=== PATIENT | male | born 1975 | race Caucasian/White ===

== ENCOUNTER 2020-04-07 09:55 | Emergency (ER) | payer OTHER ==
[~2020-04-07] VITALS: Ht 170.2 cm; Wt 76.0 kg
[2020-04-07] MEDS ORDERED: BACITRACIN ZINC OINT UDPKT TOP ONE (10:15)
[2020-04-07] MEDS ORDERED: IBUPROFEN 800MG TABLET PO ONE (10:15)
[2020-04-07] MEDS ORDERED: TETANUS, DIPHTHERIA, PERTUSSIS VAC/PF 0.5ML (>7YR OLD) IM ONE (10:15)
[2020-04-07] MEDS ORDERED: AMOXICILLIN/POTASSIUM CLAVULANATE 875/125MG TAB PO ONE (10:15)
[2020-04-07 10:52] VITALS: BP 131/76
== END 2020-04-07 10:53 | disposition home or self-care (01) ==
LOC: ER 09:55
DX: S61.252A Open bite of right middle finger without damage to nail, initial encounter (principal); W50.3XXA Accidental bite by another person, initial encounter; Y93.89 Activity, other specified; Y92.89 Other specified places as the place of occurrence of the external cause; Y99.8 Other external cause status; E11.9 Type 2 diabetes mellitus without complications; I10 Essential (primary) hypertension; E03.9 Hypothyroidism, unspecified
CPT/HCPCS: 73140; 90471; 90715; 99284

== ENCOUNTER 2020-04-26 15:52 | Emergency (ER) | payer OTHER ==
[~2020-04-26] VITALS: Ht 172.7 cm; Wt 96.0 kg
[2020-04-26 22:04] LABS: BASOPHILS % 0.8 % (0.0-2.0); CHLORIDE 102 mEq/L (98-107); HEMATOCRIT. 48.5 % (42.0-52.0); HEMOGLOBIN. 16.1 g/dL (14.0-18.0); LYMPHOCYTES % 32.4 % (20.0-50.0); MEAN CORPUSCULAR HEMOGLOBIN 27.7 pg (28.0-32.0); MEAN CORPUSCULAR VOLUME 83.5 fL (80.0-94.0); MONOCYTES % 6.8 % (2.0-8.0); RED CELL DISTRIBUTION WIDTH 14.9 % (11.6-14.6)
[2020-04-26 22:29] LABS: MEAN PLATELET VOLUME 9.3 fl (7.4-10.4); PLATELET 76 x1000/uL (130-400)
[2020-04-27] MEDS ORDERED: ACETAMINOPHEN 325MG TABLET PO STA (00:36)
[2020-04-27] MEDS ORDERED: SODIUM CHLORIDE 0.9% 1,000 ML IV ONE (00:45)
[2020-04-27] MEDS ORDERED: MORPHINE SULFATE 4 MG/ML CPJ (NOT FOR IM USE) IV ONE (00:45)
[2020-04-27] MEDS ORDERED: ONDANSETRON HCL 4MG/2ML INJ IV ONE (00:45)
[2020-04-27] MEDS ORDERED: IOHEXOL-300 100 ML BOTTLE ONE (01:49)
[2020-04-27 02:26] LABS: CLARITY URINE CLEAR (CLEAR); COLOR URINE YELLOW (YELLOW); KETONES URINE 1+ (NEGATIVE); LEUKOCYTE ESTERASE URINE NEGATIVE (NEGATIVE); NITRITE URINE NEGATIVE (NEGATIVE); OCCULT BLOOD URINE NEGATIVE (NEGATIVE); PROTEIN URINE NEGATIVE (NEGATIVE)
[2020-04-27] MEDS ORDERED: ASPIRIN 325MG EC TABLET PO ONE (04:45)
[2020-04-27 05:10] VITALS: BP 132/79
[2020-04-27] MEDS ORDERED: ATORVASTATIN CALCIUM 40MG TABLET PO SCH (21:00)
== END 2020-04-27 05:42 | disposition left against medical advice (07) ==
LOC: ER 15:52
DX: R07.89 Other chest pain (principal); R10.13 Epigastric pain; I10 Essential (primary) hypertension; E11.9 Type 2 diabetes mellitus without complications; E03.9 Hypothyroidism, unspecified
CPT/HCPCS: 36415; 74177; 80053; 81003; 83605; 83690; 85025; 85610; 96361; 96374; 99285; J2405; J7030; Q9967; J2270

== ENCOUNTER 2020-05-18 01:25 | Inpatient (IN) | payer OTHER ==
[~2020-05-18] VITALS: Ht 170.2 cm; Wt 91.3 kg
[2020-05-18] MEDS ORDERED: AZITHROMYCIN 500 MG in DEXT 5% WATER 250 ML IV ONE (03:30)
[2020-05-18] MEDS ORDERED: CEFTRIAXONE 1 G PREMIX 50 ML IV ONE (03:30)
[2020-05-18 04:04] LABS: CHLORIDE 99 mEq/L (98-107)
[2020-05-18 04:05] LABS: BASOPHILS % 0.3 % (0.0-2.0); EOSINOPHILS % 0.2 % (0.0-5.0); HEMATOCRIT. 51.3 % (42.0-52.0); HEMOGLOBIN. 16.9 g/dL (14.0-18.0); LYMPHOCYTES % 8.1 % (20.0-50.0); MEAN CORPUSCULAR HEMOGLOBIN 27.1 pg (28.0-32.0); MEAN CORPUSCULAR VOLUME 82.2 fL (80.0-94.0); MEAN PLATELET VOLUME 9.5 fl (7.4-10.4); MONOCYTES % 6.7 % (2.0-8.0); NEUTROPHILS % 84.7 % (40.0-76.0); PLATELET 182 x1000/uL (130-400); RED BLOOD CELL COUNT 6.24 mill/uL (4.7-6.1)
[2020-05-18] MEDS ORDERED: DEXTROSE 50% WATER 50ML SYRINGE IV SCH (05:15)
[2020-05-18] MEDS ORDERED: INSULIN REGULAR (HUMULIN R) 300UNITS/3ML VIAL IV SCH (05:15)
[2020-05-18] MEDS ORDERED: SODIUM BICARBONATE 8.4% 1 MEQ/ML 50ML SYR IV SCH (05:15)
[2020-05-18] MEDS ORDERED: MAGNESIUM/ALUMINUM HYDROXIDE/SIMETHICONE 30ML UDC PO PRN (09:45)
[2020-05-18] MEDS ORDERED: ACETAMINOPHEN 325MG TABLET PO PRN (09:45)
[2020-05-18] MEDS ORDERED: ONDANSETRON HCL 4MG/2ML INJ IV PRN (09:45)
[2020-05-18] MEDS ORDERED: CLONIDINE 0.1MG TABLET PO PRN (09:45)
[2020-05-18] MEDS ORDERED: NA PHOS,M-B/NA PHOS,DI-BA ENEMA 118ML PR PRN (09:45)
[2020-05-18] MEDS ORDERED: DOCUSATE SODIUM 100MG CAPSULE PO PRN (09:45)
[2020-05-18] MEDS ORDERED: DIPHENHYDRAMINE 50MG/ML VIAL IV PRN (09:45)
[2020-05-18] MEDS ORDERED: CEFTRIAXONE 1 G PREMIX 50 ML IV SCH (09:45)
[2020-05-18] MEDS ORDERED: LORAZEPAM 0.5MG TABLET PO PRN (09:45)
[2020-05-18] MEDS ORDERED: MORPHINE SULFATE 2 MG/ML CPJ (NOT FOR IM USE) IV PRN (09:45)
[2020-05-18] MEDS: DEXAMETHASONE 10 MG/ML VIAL IV SCH (09:45)
[2020-05-18] MEDS: FAMOTIDINE 20MG/2ML VIAL IV SCH (09:45)
[2020-05-18] MEDS ORDERED: ACETAMINOPHEN 650MG SUPP PR PRN (09:45)
[2020-05-18] MEDS ORDERED: HYDROCODONE/ACETAMINOPHEN 5/325MG TABLET PO PRN (09:45)
[2020-05-18] MEDS ORDERED: DEXTROSE 50% WATER 50ML SYRINGE IV PRN (09:45)
[2020-05-18] MEDS: ENOXAPARIN 80MG/0.8ML SYR SUBCUT SCH ×2 (10:00→21:00)
[2020-05-18] MEDS: ALBUTEROL 6.7GM HFA INHALER ORI SCH (10:00)
[2020-05-18] MEDS: BLOOD SUGAR DIAGNOSTIC STRIP TEST SCH ×3 (13:00→21:00)
[2020-05-18 13:07] LABS: BG BASE EXCESS -0.6 mmol/L (-2.0-2.0); BG CARBOXYHEMOGLOBIN 0.8 % (0.5-1.5); BG DEOXYHEMOGLOBIN 22.2 % (0.0-5.0); BG FRACTION INSPIRED OXYGEN 21; BG HCO3 ACT 22.4 mmol/L (22.0-26.0); BG METHEMOGLOBIN 0.1 % (0.0-1.5); BG OXYGEN SATURATION 77.6 % (92.0-98.5); BG OXYHEMOGLOBIN 76.9 % (94.0-97.0); BG PCO2 32.9 mmHg (35.0-45.0); BG PH 7.451 (7.350-7.450); BG PO2 39.7 mmHg (75.0-100.0); BG SAMPLE SITE RIGHT RADIAL; BG TOTAL HEMOGLOBIN 16.3 g/dL (12.0-18.0); BG VENT MODE ROOM AIR
[2020-05-18] MEDS: INSULIN LISPRO 100 UNITS/ML SUBCUT SCH ×3 (15:00→21:00)
[2020-05-18] MEDS ORDERED: INSULIN GLARGINE UD 100 UNITS/ML SYR SUBCUT NR (16:00)
[2020-05-18 17:51] LABS: BG BASE EXCESS -1.1 mmol/L (-2.0-2.0); BG CARBOXYHEMOGLOBIN 0.8 % (0.5-1.5); BG DEOXYHEMOGLOBIN 20.6 % (0.0-5.0); BG FRACTION INSPIRED OXYGEN 36; BG HCO3 ACT 21.8 mmol/L (22.0-26.0); BG METHEMOGLOBIN 0.2 % (0.0-1.5); BG OXYGEN SATURATION 79.2 % (92.0-98.5); BG OXYHEMOGLOBIN 78.4 % (94.0-97.0); BG PCO2 32.2 mmHg (35.0-45.0); BG PH 7.449 (7.350-7.450); BG PO2 43.5 mmHg (75.0-100.0); BG SAMPLE SITE RIGHT RADIAL; BG VENT MODE NASAL CANNULA
[2020-05-18] MEDS ORDERED: INSULIN GLARGINE UD 100 UNITS/ML SYR SUBCUT SCH (22:00)
[2020-05-19] MEDS ORDERED: AZITHROMYCIN 500 MG in DEXT 5% WATER 250 ML IV SCH (04:30)
[2020-05-19 06:16] LABS: BASOPHILS % 0.2 % (0.0-2.0); HEMOGLOBIN. 15.4 g/dL (14.0-18.0); LYMPHOCYTES % 9.6 % (20.0-50.0); MEAN CORPUSCULAR HEMOGLOBIN 26.8 pg (28.0-32.0); MEAN CORPUSCULAR VOLUME 81.7 fL (80.0-94.0); MEAN PLATELET VOLUME 8.9 fl (7.4-10.4); MONOCYTES % 6.8 % (2.0-8.0); NEUTROPHILS % 83.4 % (40.0-76.0); PLATELET 221 x1000/uL (130-400); RED BLOOD CELL COUNT 5.76 mill/uL (4.7-6.1); RED CELL DISTRIBUTION WIDTH 14.7 % (11.6-14.6)
[2020-05-19 06:22] LABS: CHLORIDE 104 mEq/L (98-107)
[2020-05-19 06:30] LABS: LDL CHOLESTEROL 63 mg/dL (5-100)
[2020-05-19 06:31] LABS: HDL CHOLESTEROL 33 mg/dL (40-59)
[2020-05-19] MEDS: DEXAMETHASONE 10 MG/ML VIAL IV SCH (09:05)
[2020-05-19] MEDS: CEFTRIAXONE 1,000 MG in DEXTROSE 5% WATER 50 ML IV SCH (09:05)
[2020-05-19] MEDS: FAMOTIDINE 20MG/2ML VIAL IV SCH (09:05)
[2020-05-19 10:04] LABS: BG CARBOXYHEMOGLOBIN 0.7 % (0.5-1.5); BG DEOXYHEMOGLOBIN 12.1 % (0.0-5.0); BG FRACTION INSPIRED OXYGEN 100; BG HCO3 ACT 20.6 mmol/L (22.0-26.0); BG METHEMOGLOBIN 0.2 % (0.0-1.5); BG OXYGEN SATURATION 87.8 % (92.0-98.5); BG PCO2 30.2 mmHg (35.0-45.0); BG PH 7.452 (7.350-7.450); BG PO2 53.8 mmHg (75.0-100.0); BG SAMPLE SITE RIGHT RADIAL; BG TOTAL HEMOGLOBIN 15.9 g/dL (12.0-18.0); BG VENT MODE MASK - NRB
[2020-05-19] MEDS: AZITHROMYCIN 500 MG in DEXT 5% WATER 250 ML IV SCH (10:48)
[2020-05-19] MEDS: ENOXAPARIN 80MG/0.8ML SYR SUBCUT SCH ×2 (11:31→21:00)
[2020-05-19] MEDS ORDERED: CHOLECALCIFEROL (D3) 1000 UNIT TABLET PO SCH (16:45)
[2020-05-19 17:13] LABS: BG BASE EXCESS -0.7 mmol/L (-2.0-2.0); BG CARBOXYHEMOGLOBIN 0.2 % (0.5-1.5); BG DEOXYHEMOGLOBIN 6.9 % (0.0-5.0); BG HCO3 ACT 21.9 mmol/L (22.0-26.0); BG METHEMOGLOBIN 0.2 % (0.0-1.5); BG OXYGEN SATURATION 93.1 % (92.0-98.5); BG OXYHEMOGLOBIN 92.7 % (94.0-97.0); BG PCO2 30.9 mmHg (35.0-45.0); BG PH 7.468 (7.350-7.450); BG PO2 67.3 mmHg (75.0-100.0); BG SAMPLE SITE RIGHT BRACHIAL; BG TOTAL HEMOGLOBIN 15.3 g/dL (12.0-18.0); BG VENT MODE MASK - NRB
[2020-05-19] MEDS: BLOOD SUGAR DIAGNOSTIC STRIP TEST SCH ×2 (19:01→21:00)
[2020-05-19] MEDS: INSULIN LISPRO 100 UNITS/ML SUBCUT SCH ×2 (19:03→23:15)
[2020-05-19] MEDS: ZINC SULFATE 220 MG ( 50 ) CAPSULE PO SCH (19:04)
[2020-05-19] MEDS: ASCORBIC ACID 500 MG TABLET PO SCH (21:00)
[2020-05-19] MEDS: INSULIN GLARGINE UD 100 UNITS/ML SYR SUBCUT SCH (22:30)
[2020-05-20 03:00] VITALS: BP 136/83
[2020-05-20] MEDS: CEFTRIAXONE 1,000 MG in DEXTROSE 5% WATER 50 ML IV SCH (04:00)
[2020-05-20] MEDS: BLOOD SUGAR DIAGNOSTIC STRIP TEST SCH ×4 (05:38→21:41)
[2020-05-20 07:32] LABS: CHLORIDE 102 mEq/L (98-107)
[2020-05-20 07:55] LABS: BASOPHILS % 0.3 % (0.0-2.0); HEMATOCRIT. 43.2 % (42.0-52.0); HEMOGLOBIN. 14.2 g/dL (14.0-18.0); MEAN CORPUSCULAR HEMOGLOBIN 26.8 pg (28.0-32.0); MEAN CORPUSCULAR VOLUME 81.6 fL (80.0-94.0); MEAN PLATELET VOLUME 9.7 fl (7.4-10.4); MONOCYTES % 9.1 % (2.0-8.0); NEUTROPHILS % 81.6 % (40.0-76.0); PLATELET 248 x1000/uL (130-400); RED BLOOD CELL COUNT 5.29 mill/uL (4.7-6.1); RED CELL DISTRIBUTION WIDTH 15.2 % (11.6-14.6)
[2020-05-20 08:00] VITALS: BP 117/57
[2020-05-20] MEDS: FAMOTIDINE 20MG/2ML VIAL IV SCH (09:36)
[2020-05-20] MEDS: ZINC SULFATE 220 MG ( 50 ) CAPSULE PO SCH (09:36)
[2020-05-20] MEDS: ASCORBIC ACID 500 MG TABLET PO SCH ×2 (09:36→21:57)
[2020-05-20] MEDS: DEXAMETHASONE 10 MG/ML VIAL IV SCH (09:36)
[2020-05-20] MEDS: INSULIN LISPRO 100 UNITS/ML SUBCUT SCH ×4 (09:42→21:58)
[2020-05-20] MEDS: AZITHROMYCIN 500 MG in DEXT 5% WATER 250 ML IV SCH (09:43)
[2020-05-20 12:00] VITALS: BP 124/84
[2020-05-20] MEDS: INSULIN GLARGINE UD 100 UNITS/ML SYR SUBCUT SCH ×2 (14:17→21:59)
[2020-05-20] MEDS: CHOLECALCIFEROL (D3) 1000 UNIT TABLET PO SCH (15:24)
[2020-05-20] MEDS: ENOXAPARIN 80MG/0.8ML SYR SUBCUT SCH ×2 (15:26→21:57)
[2020-05-20] MEDS ORDERED: INSULIN LISPRO 100 UNITS/ML SUBCUT NR (15:45)
[2020-05-20 16:00] VITALS: BP 127/79
[2020-05-20 17:04] LABS: BG BASE EXCESS 0.1 mmol/L (-2.0-2.0); BG CARBOXYHEMOGLOBIN 0.3 % (0.5-1.5); BG DEOXYHEMOGLOBIN 3.4 % (0.0-5.0); BG FRACTION INSPIRED OXYGEN 100; BG HCO3 ACT 21.9 mmol/L (22.0-26.0); BG METHEMOGLOBIN 0.3 % (0.0-1.5); BG OXYGEN SATURATION 96.6 % (92.0-98.5); BG PCO2 28.7 mmHg (35.0-45.0); BG PH 7.501 (7.350-7.450); BG PO2 84.2 mmHg (75.0-100.0); BG SAMPLE SITE RIGHT RADIAL; BG VENT MODE MASK - NRB
[2020-05-20 20:00] VITALS: BP 126/78
[2020-05-20] MEDS: ALBUTEROL 6.7GM HFA INHALER ORI SCH (22:00)
[2020-05-21] VITALS: BP 129/76
[2020-05-21 04:00] VITALS: BP 130/80
[2020-05-21] MEDS: BLOOD SUGAR DIAGNOSTIC STRIP TEST SCH ×4 (06:40→21:00)
[2020-05-21 08:00] VITALS: BP 133/81
[2020-05-21] MEDS: FAMOTIDINE 20MG/2ML VIAL IV SCH (09:03)
[2020-05-21] MEDS: ASCORBIC ACID 500 MG TABLET PO SCH ×2 (09:03→23:11)
[2020-05-21] MEDS: ZINC SULFATE 220 MG ( 50 ) CAPSULE PO SCH (09:03)
[2020-05-21] MEDS: CHOLECALCIFEROL (D3) 1000 UNIT TABLET PO SCH (09:03)
[2020-05-21] MEDS: ENOXAPARIN 80MG/0.8ML SYR SUBCUT SCH ×2 (09:04→23:11)
[2020-05-21] MEDS: INSULIN LISPRO 100 UNITS/ML SUBCUT SCH ×4 (09:19→23:12)
[2020-05-21] MEDS: INSULIN GLARGINE UD 100 UNITS/ML SYR SUBCUT SCH ×2 (10:00→23:12)
[2020-05-21] MEDS: DEXAMETHASONE 10 MG/ML VIAL IV SCH (10:49)
[2020-05-21 12:00] VITALS: BP 125/82
[2020-05-21 16:00] VITALS: BP 131/82
[2020-05-21] MEDS ORDERED: INSULIN LISPRO 100 UNITS/ML SUBCUT NR (18:00)
[2020-05-21 20:00] VITALS: BP 119/78
[2020-05-21] MEDS ORDERED: INSULIN GLARGINE UD 100 UNITS/ML SYR SUBCUT SCH (22:00)
[2020-05-21] MEDS: ALBUTEROL 6.7GM HFA INHALER ORI SCH (22:00)
[2020-05-22] VITALS: BP 106/82
[2020-05-22 04:00] VITALS: BP 116/80
[2020-05-22] MEDS: INSULIN LISPRO 100 UNITS/ML SUBCUT SCH ×4 (07:10→21:06)
[2020-05-22 08:00] VITALS: BP 114/76
[2020-05-22] MEDS: ASCORBIC ACID 500 MG TABLET PO SCH ×2 (09:00→21:04)
[2020-05-22] MEDS: FAMOTIDINE 20MG/2ML VIAL IV SCH (10:06)
[2020-05-22] MEDS: CHOLECALCIFEROL (D3) 1000 UNIT TABLET PO SCH (10:06)
[2020-05-22] MEDS: ENOXAPARIN 80MG/0.8ML SYR SUBCUT SCH ×2 (10:06→21:05)
[2020-05-22] MEDS: DEXAMETHASONE 10 MG/ML VIAL IV SCH (10:06)
[2020-05-22] MEDS: ZINC SULFATE 220 MG ( 50 ) CAPSULE PO SCH (10:07)
[2020-05-22] MEDS: INSULIN GLARGINE UD 100 UNITS/ML SYR SUBCUT SCH ×2 (10:31→22:46)
[2020-05-22] MEDS: BLOOD SUGAR DIAGNOSTIC STRIP TEST SCH ×4 (11:40→21:04)
[2020-05-22 12:00] VITALS: BP 124/78
[2020-05-22 12:34] LABS: BG CARBOXYHEMOGLOBIN 0.3 % (0.5-1.5); BG DEOXYHEMOGLOBIN 1.3 % (0.0-5.0); BG FRACTION INSPIRED OXYGEN 100; BG HCO3 ACT 22.6 mmol/L (22.0-26.0); BG METHEMOGLOBIN 0.3 % (0.0-1.5); BG OXYGEN SATURATION 98.7 % (92.0-98.5); BG OXYHEMOGLOBIN 98.1 % (94.0-97.0); BG PCO2 28.2 mmHg (35.0-45.0); BG PH 7.521 (7.350-7.450); BG PO2 163.1 mmHg (75.0-100.0); BG SAMPLE SITE RIGHT RADIAL; BG VENT MODE MASK - NRB
[2020-05-22 16:00] VITALS: BP 119/77
[2020-05-22] MEDS ORDERED: INSULIN LISPRO 100 UNITS/ML SUBCUT NR (16:53)
[2020-05-22 20:00] VITALS: BP 116/74
[2020-05-22] MEDS: ALBUTEROL 6.7GM HFA INHALER ORI SCH (21:07)
[2020-05-23] VITALS: BP 110/73
[2020-05-23] MEDS: GUAIFENESIN 200MG/10ML SUGAR FREE UDC PO PRN ×2 (02:48→23:59)
[2020-05-23 04:00] VITALS: BP 117/72
[2020-05-23] MEDS: ALBUTEROL 6.7GM HFA INHALER ORI SCH ×4 (05:23→21:32)
[2020-05-23] MEDS: BLOOD SUGAR DIAGNOSTIC STRIP TEST SCH ×4 (05:41→21:30)
[2020-05-23 08:00] VITALS: BP 106/77
[2020-05-23] MEDS: ZINC SULFATE 220 MG ( 50 ) CAPSULE PO SCH (09:39)
[2020-05-23] MEDS: CHOLECALCIFEROL (D3) 1000 UNIT TABLET PO SCH (09:39)
[2020-05-23] MEDS: DEXAMETHASONE 10 MG/ML VIAL IV SCH (09:39)
[2020-05-23] MEDS: ASCORBIC ACID 500 MG TABLET PO SCH ×2 (09:40→21:31)
[2020-05-23] MEDS: ENOXAPARIN 80MG/0.8ML SYR SUBCUT SCH ×2 (09:40→21:32)
[2020-05-23] MEDS: FAMOTIDINE 20MG/2ML VIAL IV SCH (09:40)
[2020-05-23] MEDS: INSULIN LISPRO 100 UNITS/ML SUBCUT SCH ×4 (09:41→23:47)
[2020-05-23] MEDS: INSULIN GLARGINE UD 100 UNITS/ML SYR SUBCUT SCH ×2 (10:11→23:46)
[2020-05-23 12:00] VITALS: BP 108/62
[2020-05-23 16:00] VITALS: BP 100/61
[2020-05-23] MEDS ORDERED: INSULIN LISPRO 100 UNITS/ML SUBCUT NR (18:00)
[2020-05-23 20:00] VITALS: BP 104/61
[2020-05-24] VITALS: BP 111/63
[2020-05-24] MEDS: ALBUTEROL 6.7GM HFA INHALER ORI SCH ×3 (03:30→19:00)
[2020-05-24 04:00] VITALS: BP 104/70
[2020-05-24 06:39] LABS: HEMATOCRIT 43.9 % (42.0-52.0); HEMOGLOBIN 14.8 g/dL (14.0-18.0); MEAN CORPUSCULAR HEMOGLOBIN 27.2 pg (28.0-32.0); MEAN CORPUSCULAR VOLUME 80.5 fL (80.0-94.0); PLATELET 288 x1000/uL (130-400); RED BLOOD CELL COUNT 5.45 mill/uL (4.7-6.1); RED CELL DISTRIBUTION WIDTH 14.8 % (11.6-14.6)
[2020-05-24] MEDS: BLOOD SUGAR DIAGNOSTIC STRIP TEST SCH ×4 (06:40→21:00)
[2020-05-24] MEDS: INSULIN LISPRO 100 UNITS/ML SUBCUT SCH ×3 (07:10→19:02)
[2020-05-24 08:41] LABS: CHLORIDE 101 mEq/L (98-107)
[2020-05-24] MEDS: DEXAMETHASONE 10 MG/ML VIAL IV SCH (09:33)
[2020-05-24] MEDS: FAMOTIDINE 20MG/2ML VIAL IV SCH (09:33)
[2020-05-24] MEDS: CHOLECALCIFEROL (D3) 1000 UNIT TABLET PO SCH (09:33)
[2020-05-24] MEDS: ZINC SULFATE 220 MG ( 50 ) CAPSULE PO SCH (09:33)
[2020-05-24] MEDS: INSULIN GLARGINE UD 100 UNITS/ML SYR SUBCUT SCH ×2 (09:35→22:00)
[2020-05-24] MEDS ORDERED: POTASSIUM CHLORIDE 20MEQ TABLET SR PO NR (11:00)
[2020-05-24 11:17] LABS: BG BASE EXCESS -0.7 mmol/L (-2.0-2.0); BG CARBOXYHEMOGLOBIN 0.5 % (0.5-1.5); BG DEOXYHEMOGLOBIN 6.3 % (0.0-5.0); BG FRACTION INSPIRED OXYGEN 44; BG HCO3 ACT 21.3 mmol/L (22.0-26.0); BG METHEMOGLOBIN 0.1 % (0.0-1.5); BG OXYGEN SATURATION 93.7 % (92.0-98.5); BG OXYHEMOGLOBIN 93.1 % (94.0-97.0); BG PCO2 28.8 mmHg (35.0-45.0); BG PH 7.487 (7.350-7.450); BG SAMPLE SITE RIGHT RADIAL; BG TOTAL HEMOGLOBIN 15.4 g/dL (12.0-18.0); BG VENT MODE NASAL CANNULA
[2020-05-24 12:00] VITALS: BP 98/59
[2020-05-24] MEDS: ASCORBIC ACID 500 MG TABLET PO SCH ×2 (14:32→22:47)
[2020-05-24] MEDS: ENOXAPARIN 80MG/0.8ML SYR SUBCUT SCH (14:33)
[2020-05-24 16:00] VITALS: BP 99/55
[2020-05-24 20:00] VITALS: BP 111/66
[2020-05-24] MEDS: ENOXAPARIN 100MG/ML SYR SUBCUT SCH (22:48)
[2020-05-25 00:01] VITALS: BP 116/81
[2020-05-25] MEDS: INSULIN LISPRO 100 UNITS/ML SUBCUT SCH ×6 (00:41→22:54)
[2020-05-25 04:00] VITALS: BP 119/77
[2020-05-25] MEDS: BLOOD SUGAR DIAGNOSTIC STRIP TEST SCH ×4 (06:40→21:00)
[2020-05-25 08:00] VITALS: BP 111/72
[2020-05-25] MEDS: FAMOTIDINE 20MG/2ML VIAL IV SCH (09:43)
[2020-05-25] MEDS: ASCORBIC ACID 500 MG TABLET PO SCH ×2 (09:43→21:55)
[2020-05-25] MEDS: CHOLECALCIFEROL (D3) 1000 UNIT TABLET PO SCH (09:43)
[2020-05-25] MEDS: ENOXAPARIN 100MG/ML SYR SUBCUT SCH ×2 (09:44→21:55)
[2020-05-25] MEDS: DEXAMETHASONE 10 MG/ML VIAL IV SCH (09:44)
[2020-05-25] MEDS: ZINC SULFATE 220 MG ( 50 ) CAPSULE PO SCH (09:44)
[2020-05-25] MEDS: INSULIN GLARGINE UD 100 UNITS/ML SYR SUBCUT SCH ×2 (09:45→22:55)
[2020-05-25] MEDS: ALBUTEROL 6.7GM HFA INHALER ORI SCH ×2 (09:48→17:55)
[2020-05-25 12:00] VITALS: BP 115/79
[2020-05-25 16:00] VITALS: BP 102/61
[2020-05-25 20:00] VITALS: BP 106/67
[2020-05-26] VITALS: BP 145/60
[2020-05-26 04:00] VITALS: BP 110/71
[2020-05-26 06:31] LABS: BASOPHILS % 0.4 % (0.0-2.0); EOSINOPHILS % 0.9 % (0.0-5.0); HEMOGLOBIN. 14.8 g/dL (14.0-18.0); LYMPHOCYTES % 18.2 % (20.0-50.0); MEAN CORPUSCULAR HEMOGLOBIN 27.1 pg (28.0-32.0); MEAN CORPUSCULAR VOLUME 80.5 fL (80.0-94.0); MEAN PLATELET VOLUME 9.8 fl (7.4-10.4); MONOCYTES % 8.6 % (2.0-8.0); NEUTROPHILS % 71.9 % (40.0-76.0); PLATELET 333 x1000/uL (130-400); RED BLOOD CELL COUNT 5.46 mill/uL (4.7-6.1)
[2020-05-26] MEDS: BLOOD SUGAR DIAGNOSTIC STRIP TEST SCH ×4 (06:43→21:00)
[2020-05-26 06:48] LABS: CHLORIDE 96 mEq/L (98-107)
[2020-05-26] MEDS: INSULIN LISPRO 100 UNITS/ML SUBCUT SCH ×7 (06:49→21:00)
[2020-05-26 08:00] VITALS: BP 118/85
[2020-05-26] MEDS: DEXAMETHASONE 10 MG/ML VIAL IV SCH (08:31)
[2020-05-26] MEDS: FAMOTIDINE 20MG/2ML VIAL IV SCH (08:31)
[2020-05-26] MEDS: CHOLECALCIFEROL (D3) 1000 UNIT TABLET PO SCH (08:31)
[2020-05-26] MEDS: ZINC SULFATE 220 MG ( 50 ) CAPSULE PO SCH (08:31)
[2020-05-26] MEDS: ASCORBIC ACID 500 MG TABLET PO SCH ×2 (08:31→21:11)
[2020-05-26] MEDS: ENOXAPARIN 100MG/ML SYR SUBCUT SCH ×2 (08:32→21:11)
[2020-05-26] MEDS: INSULIN GLARGINE UD 100 UNITS/ML SYR SUBCUT SCH ×2 (09:34→22:22)
[2020-05-26] MEDS: ALBUTEROL 6.7GM HFA INHALER ORI SCH ×3 (10:01→21:12)
[2020-05-26 12:00] VITALS: BP 107/59
[2020-05-26 13:46] LABS: BG BASE EXCESS -1.9 mmol/L (-2.0-2.0); BG DEOXYHEMOGLOBIN 3.3 % (0.0-5.0); BG HCO3 ACT 20.8 mmol/L (22.0-26.0); BG METHEMOGLOBIN 0.1 % (0.0-1.5); BG OXYGEN SATURATION 96.7 % (92.0-98.5); BG OXYHEMOGLOBIN 95.6 % (94.0-97.0); BG PCO2 30.4 mmHg (35.0-45.0); BG PH 7.453 (7.350-7.450); BG PO2 84.7 mmHg (75.0-100.0); BG SAMPLE SITE RIGHT BRACHIAL; BG TOTAL HEMOGLOBIN 15.8 g/dL (12.0-18.0); BG VENT MODE NASAL CANNULA
[2020-05-26 16:00] VITALS: BP 102/62
[2020-05-26 20:00] VITALS: BP 115/68
[2020-05-27 00:01] VITALS: BP 106/60
[2020-05-27] MEDS: ALBUTEROL 6.7GM HFA INHALER ORI SCH ×4 (03:47→21:28)
[2020-05-27 04:00] VITALS: BP 102/64
[2020-05-27] MEDS: BLOOD SUGAR DIAGNOSTIC STRIP TEST SCH ×4 (06:38→21:27)
[2020-05-27] MEDS: INSULIN LISPRO 100 UNITS/ML SUBCUT SCH ×7 (06:38→23:52)
[2020-05-27 06:52] LABS: CHLORIDE 95 mEq/L (98-107)
[2020-05-27 07:05] LABS: BASOPHILS % 0.6 % (0.0-2.0); EOSINOPHILS % 0.6 % (0.0-5.0); HEMATOCRIT. 44.4 % (42.0-52.0); HEMOGLOBIN. 14.8 g/dL (14.0-18.0); LYMPHOCYTES % 19.9 % (20.0-50.0); MEAN CORPUSCULAR HEMOGLOBIN 27.2 pg (28.0-32.0); MEAN CORPUSCULAR VOLUME 81.4 fL (80.0-94.0); MEAN PLATELET VOLUME 9.8 fl (7.4-10.4); MONOCYTES % 8.3 % (2.0-8.0); NEUTROPHILS % 70.6 % (40.0-76.0); PLATELET 334 x1000/uL (130-400); RED BLOOD CELL COUNT 5.45 mill/uL (4.7-6.1); RED CELL DISTRIBUTION WIDTH 15.2 % (11.6-14.6)
[2020-05-27 08:00] VITALS: BP 103/56
[2020-05-27] MEDS: ENOXAPARIN 100MG/ML SYR SUBCUT SCH ×2 (09:26→21:27)
[2020-05-27] MEDS: ASCORBIC ACID 500 MG TABLET PO SCH ×2 (09:26→21:27)
[2020-05-27] MEDS: ZINC SULFATE 220 MG ( 50 ) CAPSULE PO SCH (09:26)
[2020-05-27] MEDS: DEXAMETHASONE 10 MG/ML VIAL IV SCH (09:26)
[2020-05-27] MEDS: FAMOTIDINE 20MG/2ML VIAL IV SCH (09:26)
[2020-05-27] MEDS: CHOLECALCIFEROL (D3) 1000 UNIT TABLET PO SCH (09:26)
[2020-05-27] MEDS: INSULIN GLARGINE UD 100 UNITS/ML SYR SUBCUT SCH ×2 (10:21→23:53)
[2020-05-27 12:33] LABS: BG CARBOXYHEMOGLOBIN 1.4 % (0.5-1.5); BG DEOXYHEMOGLOBIN 5.3 % (0.0-5.0); BG FRACTION INSPIRED OXYGEN 32; BG HCO3 ACT 23.4 mmol/L (22.0-26.0); BG OXYGEN SATURATION 94.6 % (92.0-98.5); BG OXYHEMOGLOBIN 93.3 % (94.0-97.0); BG PCO2 34.8 mmHg (35.0-45.0); BG PH 7.446 (7.350-7.450); BG PO2 70.3 mmHg (75.0-100.0); BG SAMPLE SITE RIGHT BRACHIAL; BG TOTAL HEMOGLOBIN 16.1 g/dL (12.0-18.0); BG VENT MODE NASAL CANNULA
[2020-05-27 12:40] VITALS: BP 120/71
[2020-05-27] MEDS ORDERED: APIX5TAB MT (15:12)
[2020-05-27] MEDS ORDERED: ALBU90AE INH (15:12)
[2020-05-27] MEDS ORDERED: CHOL3000 PO (15:12)
[2020-05-27] MEDS ORDERED: ZINC50TA2 PO (15:12)
[2020-05-27] MEDS ORDERED: ASCO-339 MT (15:12)
[2020-05-27] MEDS ORDERED: DEXA2TAB PO (15:12)
[2020-05-27] MEDS ORDERED: FAMO-135 PO (15:12)
[2020-05-27 17:11] VITALS: BP 111/64
[2020-05-27 20:00] VITALS: BP 108/68
[2020-05-28] VITALS: BP 96/53
[2020-05-28] MEDS: ALBUTEROL 6.7GM HFA INHALER ORI SCH ×3 (03:22→17:36)
[2020-05-28 04:00] VITALS: BP 112/71
[2020-05-28] MEDS: INSULIN LISPRO 100 UNITS/ML SUBCUT SCH ×6 (06:53→17:37)
[2020-05-28] MEDS: BLOOD SUGAR DIAGNOSTIC STRIP TEST SCH ×3 (06:54→17:37)
[2020-05-28 08:00] VITALS: BP 102/68
[2020-05-28] MEDS: FAMOTIDINE 20MG/2ML VIAL IV SCH (08:46)
[2020-05-28] MEDS: CHOLECALCIFEROL (D3) 1000 UNIT TABLET PO SCH (08:46)
[2020-05-28] MEDS: ASCORBIC ACID 500 MG TABLET PO SCH (08:46)
[2020-05-28] MEDS: ENOXAPARIN 100MG/ML SYR SUBCUT SCH (08:47)
[2020-05-28] MEDS: ZINC SULFATE 220 MG ( 50 ) CAPSULE PO SCH (08:54)
[2020-05-28] MEDS ORDERED: DEXAMETHASONE 10 MG/ML VIAL IV SCH (09:00)
[2020-05-28] MEDS: INSULIN GLARGINE UD 100 UNITS/ML SYR SUBCUT SCH (10:04)
[2020-05-28 12:00] VITALS: BP 112/68
[2020-05-28 12:07] LABS: BG BASE EXCESS 1.8 mmol/L (-2.0-2.0); BG CARBOXYHEMOGLOBIN 0.7 % (0.5-1.5); BG DEOXYHEMOGLOBIN 4.7 % (0.0-5.0); BG FRACTION INSPIRED OXYGEN 32; BG HCO3 ACT 24.4 mmol/L (22.0-26.0); BG METHEMOGLOBIN 0.3 % (0.0-1.5); BG OXYGEN SATURATION 95.3 % (92.0-98.5); BG OXYHEMOGLOBIN 94.3 % (94.0-97.0); BG PH 7.487 (7.350-7.450); BG PO2 74.7 mmHg (75.0-100.0); BG SAMPLE SITE RIGHT BRACHIAL; BG TOTAL HEMOGLOBIN 16.2 g/dL (12.0-18.0); BG VENT MODE NASAL CANNULA
[2020-05-28 14:11] VITALS: BP 112/68
== END 2020-05-28 19:33 | disposition home or self-care (01) | DRG 177 ==
LOC: ER 01:25 → MICUSO 05:56 → SUPCPDRO 09:43 → 7EST 05-19 22:54
PROVIDERS: ADMIT Internal Medicine; ATTEND Internal Medicine
PROC: XW13325 Transfusion of Convalescent Plasma (Nonautologous) into Peripheral Vein, Percutaneous Approach, New Technology Group 5 (ICD-10-PCS; principal; 2020-05-19)
DX: U07.1 COVID-19 (principal); J96.01 Acute respiratory failure with hypoxia; J12.82 Pneumonia due to coronavirus disease 2019; D68.59 Other primary thrombophilia; E03.9 Hypothyroidism, unspecified; K59.00 Constipation, unspecified; E11.9 Type 2 diabetes mellitus without complications; E87.5 Hyperkalemia; E78.5 Hyperlipidemia, unspecified; I10 Essential (primary) hypertension; Z91.19 Patient's noncompliance with other medical treatment and regimen; Z79.01 Long term (current) use of anticoagulants; Z79.899 Other long term (current) drug therapy
CPT/HCPCS: 36415; 36600; 71045; 80048; 80053; 80061; 82375; 82728; 82805; 82962; 83036; 83605; 83615; 83880; 84132; 84145; 84439; 84443; 84484; 85025; 85027; 85379; 86140; 86141; 86850; 86900; 87635; 93005; 99285; J0456; J0696; J1100; J1650; J1815; J3490; J7060

== ENCOUNTER 2024-06-21 13:08 | Emergency (ER) | payer MEDICAID, OTHER ==
[~2024-06-21] VITALS: Ht 170.2 cm; Wt 99.8 kg
[~2024-06-21 13:08] MED LIST: ALBU90AE INH; APIX5TAB MT; ASCO-339 MT; CHOL3000 PO; DEXA2TAB PO; FAMO-135 PO; ZINC50TA2 PO
[2024-06-21 13:28] VITALS: O2SAT 97
[2024-06-21 15:12] LABS: BASOPHILS % 0.9 % (0.0-2.0); HEMATOCRIT. 48.7 % (42.0-52.0); HEMOGLOBIN. 16.2 g/dL (14.0-18.0); LYMPHOCYTES % 21.1 % (20.0-50.0); MEAN CORPUSCULAR HGB CONC 33.3 g/dL (31.0-37.0); MEAN CORPUSCULAR VOLUME 86.8 fL (80.0-94.0); MEAN PLATELET VOLUME 8.3 fl (7.4-10.4); MONOCYTES % 7.4 % (2.0-8.0); NEUTROPHILS % 68.6 % (40.0-76.0); PLATELET 213 x1000/uL (130-400); RED BLOOD CELL COUNT 5.61 mill/uL (4.7-6.1); RED CELL DISTRIBUTION WIDTH 16.3 % (11.6-14.6); WHITE BLOOD COUNT 6.3 x1000/uL (4.5-11.0)
[2024-06-21 15:21] LABS: CHLORIDE 99 mEq/L (98-107); POTASSIUM 4.1 mEq/L (3.5-5.1); SODIUM 134 mEq/L (136-145)
[2024-06-21 15:22] LABS: CARBON DIOXIDE 31 mEq/L (21-32)
[2024-06-21 15:23] LABS: CALCIUM 9.9 mg/dL (8.7-10.4)
[2024-06-21 15:27] LABS: CLARITY URINE CLEAR (CLEAR); COLOR URINE YELLOW (YELLOW); GLUCOSE URINE 3+ (NEGATIVE); KETONES URINE NEGATIVE (NEGATIVE); LEUKOCYTE ESTERASE URINE NEGATIVE (NEGATIVE); NITRITE URINE NEGATIVE (NEGATIVE); OCCULT BLOOD URINE NEGATIVE (NEGATIVE); PROTEIN URINE 2+ (NEGATIVE); SPECIFIC GRAVITY URINE 1.017 (1.005-1.030); UROBILINOGEN URINE 0.2 E.U./dL (0.2-1.0)
[2024-06-21 15:27] LABS: CREATININE 1.2 mg/dL (0.6-1.3); GLUCOSE 247 mg/dL (70-105); UREA NITROGEN BLOOD 12 mg/dL (9-23)
[2024-06-21] MEDS: GABAPENTIN 400MG CAPSULE PO ONE (15:33)
[2024-06-21 15:47] LABS: BACTERIA URINE TRACE; RBC URINE NONE SEEN /hpf (0-2); SQUAMOUS EPITHELIAL CELL URINE FEW /lpf (RARE/1+); WBC URINE 0-2 /hpf (0-2)
[2024-06-21] MEDS ORDERED: GABA-534 MT (16:08)
[2024-06-21 17:41] VITALS: BP 132/89; PULSE 75; RESP 18; TEMP 36.6; O2SAT 95
== END 2024-06-21 17:44 | disposition home or self-care (01) ==
LOC: ER 13:08
DX: M79.662 Pain in left lower leg (principal); M79.661 Pain in right lower leg; E11.40 Type 2 diabetes mellitus with diabetic neuropathy, unspecified; I10 Essential (primary) hypertension; Z79.01 Long term (current) use of anticoagulants; Z79.52 Long term (current) use of systemic steroids; Z79.899 Other long term (current) drug therapy
CPT/HCPCS: 36415; 80048; 81003; 85025; 99283

== ENCOUNTER 2024-09-11 09:03 | Emergency (ER) | payer MEDICAID ==
[~2024-09-11] VITALS: Ht 170.2 cm; Wt 91.0 kg
[~2024-09-11 09:03] MED LIST changes: +GABA-534 MT
[2024-09-11 09:11] VITALS: O2SAT 98
[2024-09-11 09:42] LABS: BASOPHILS % 0.9 % (0.0-2.0); HEMATOCRIT. 46.6 % (42.0-52.0); HEMOGLOBIN. 15.5 g/dL (14.0-18.0); LYMPHOCYTES % 20.6 % (20.0-50.0); MEAN CORPUSCULAR HEMOGLOBIN 29.5 pg (28.0-32.0); MEAN CORPUSCULAR HGB CONC 33.2 g/dL (31.0-37.0); MEAN CORPUSCULAR VOLUME 88.8 fL (80.0-94.0); MEAN PLATELET VOLUME 8.4 fl (7.4-10.4); MONOCYTES % 6.2 % (2.0-8.0); NEUTROPHILS % 70.3 % (40.0-76.0); PLATELET 230 x1000/uL (130-400); RED BLOOD CELL COUNT 5.24 mill/uL (4.7-6.1); RED CELL DISTRIBUTION WIDTH 16.5 % (11.6-14.6); WHITE BLOOD COUNT 6.2 x1000/uL (4.5-11.0)
[2024-09-11 09:51] LABS: CLARITY URINE CLEAR (CLEAR); COLOR URINE YELLOW (YELLOW); GLUCOSE URINE 3+ (NEGATIVE); KETONES URINE 1+ (NEGATIVE); LEUKOCYTE ESTERASE URINE NEGATIVE (NEGATIVE); NITRITE URINE NEGATIVE (NEGATIVE); OCCULT BLOOD URINE NEGATIVE (NEGATIVE); PH URINE 6.5 (4.5-8.0); PROTEIN URINE 1+ (NEGATIVE); SPECIFIC GRAVITY URINE 1.027 (1.005-1.030)
[2024-09-11 09:52] LABS: CHLORIDE 94 mEq/L (98-107); POTASSIUM 3.6 mEq/L (3.5-5.1); SODIUM 129 mEq/L (136-145)
[2024-09-11 09:53] LABS: CARBON DIOXIDE 25 mEq/L (21-32)
[2024-09-11 09:54] LABS: CALCIUM 9.9 mg/dL (8.7-10.4)
[2024-09-11 09:58] LABS: CREATININE 1.2 mg/dL (0.6-1.3); GLUCOSE 219 mg/dL (70-105); UREA NITROGEN BLOOD 22 mg/dL (9-23)
[2024-09-11 10:00] LABS: ALANINE AMINOTRANSFERASE 101 IU/L (10-49); ALBUMIN 4.6 g/dL (3.2-4.8); ASPARTATE AMINOTRANSFERASE 122 IU/L (<34)
[2024-09-11 10:00] LABS: BACTERIA URINE NONE SEEN; RBC URINE 0-2 /hpf (0-2); SQUAMOUS EPITHELIAL CELL URINE RARE /lpf (RARE/1+); WBC URINE 0-2 /hpf (0-2); YEAST URINE NONE SEEN
[2024-09-11 10:01] LABS: BILIRUBIN DIRECT 0.3 mg/dL (<=3.0); BILIRUBIN TOTAL 1.2 mg/dL (0.1-1.0); PROTEIN TOTAL 7.8 g/dL (6.0-8.3)
[2024-09-11] MEDS: KETOROLAC 15MG/ML VIAL IM ONE (10:10)
[2024-09-11] MEDS: MAGNESIUM/ALUMINUM HYDROXIDE/SIMETHICONE 30ML UDC PO ONE (10:10)
[2024-09-11] MEDS: ONDANSETRON 4MG ODT PO ONE (10:11)
[2024-09-11] MEDS: ACETAMINOPHEN 325MG TABLET PO ONE (10:11)
[2024-09-11] MEDS: SODIUM CHLORIDE 0.9% 1,000 ML IV ONE (10:56)
[2024-09-11 11:52] VITALS: BP 145/80; PULSE 84; RESP 14; TEMP 37; O2SAT 98
== END 2024-09-11 11:54 | disposition home or self-care (01) ==
LOC: ER 09:03
DX: K59.09 Other constipation (principal); I10 Essential (primary) hypertension; E11.9 Type 2 diabetes mellitus without complications; Z79.899 Other long term (current) drug therapy
CPT/HCPCS: 99285; 74176; 96360; 80076; 80048; 81003; 83690; 85025; 36415; 96372; J1885; Q0162; J7030

== ENCOUNTER 2025-05-01 09:55 | Emergency (ER) | payer MEDICAID ==
[~2025-05-01] VITALS: Ht 167.6 cm; Wt 85.0 kg
[2025-05-01 10:10] VITALS: O2SAT 98
[2025-05-01 10:57] LABS: BASOPHILS % 1.0 % (0.0-2.0); EOSINOPHILS % 4.6 % (0.0-5.0); HEMATOCRIT. 48.7 % (42.0-52.0); HEMOGLOBIN. 15.7 g/dL (14.0-18.0); LYMPHOCYTES % 25.4 % (20.0-50.0); MEAN PLATELET VOLUME 9.3 fl (7.4-10.4); MONOCYTES % 8.9 % (2.0-8.0); NEUTROPHILS % 60.1 % (40.0-76.0); PLATELET 162 x1000/uL (130-400); RED BLOOD CELL COUNT 5.74 mill/uL (4.7-6.1); RED CELL DISTRIBUTION WIDTH 15.5 % (11.6-14.6)
[2025-05-01 11:11] LABS: CREATININE 0.9 mg/dL (0.6-1.3); UREA NITROGEN BLOOD 9 mg/dL (9-23)
[2025-05-01 11:12] LABS: TROPONIN I HIGH SENSITIVITY 4 ng/L (3.0-53)
[2025-05-01] MEDS: FUROSEMIDE 40MG TABLET PO ONE (11:36)
[2025-05-01] MEDS ORDERED: FURO-151 MT (11:52)
[2025-05-01] MEDS ORDERED: POTA-354 MT (11:52)
[2025-05-01 12:32] VITALS: BP 151/87; PULSE 95; RESP 16; TEMP 36.9; O2SAT 100
== END 2025-05-01 12:33 | disposition home or self-care (01) ==
LOC: ER 09:55
DX: R60.0 Localized edema (principal); E11.9 Type 2 diabetes mellitus without complications; I10 Essential (primary) hypertension; M19.90 Unspecified osteoarthritis, unspecified site
CPT/HCPCS: 36415; 71045; 73630; 80048; 82962; 84484; 85025; 93005; 99285